=== PATIENT | male | born 1950 | race Caucasian/White ===

== ENCOUNTER 2018-10-10 07:04 | Day surgery (SDC) | payer OTHER, MEDICARE ==
[~2018-10-10] VITALS: Ht 180.3 cm; Wt 66.8 kg
[~2018-10-10 07:04] MED LIST: AMOCLA875 PO; LO-DOSE ASPIRIN81 MG
== END 2018-10-10 09:29 | disposition home or self-care (01) ==
LOC: ORSCSDS 07:04
PROVIDERS: Surgery
PROC: 0DJD8ZZ Inspection of Lower Intestinal Tract, Via Natural or Artificial Opening Endoscopic (ICD-10-PCS; principal; 2018-10-10 08:30)
DX: Z12.11 Encounter for screening for malignant neoplasm of colon (principal); Z79.82 Long term (current) use of aspirin
CPT/HCPCS: J2704; J7120

== ENCOUNTER 2021-06-26 09:54 | Day surgery (SDC) | payer OTHER ==
[~2021-06-26] VITALS: Ht 180.3 cm; Wt 65.0 kg
[~2021-06-26 09:54] MED LIST changes: +ATOR10; +Acerola C500 MG; +Aspir 8181 MG; +MULVITA; +REVATIO20 MG
== END 2021-06-26 11:38 | disposition home or self-care (01) ==
LOC: ORSCSDS 09:54
PROVIDERS: Student in an Organized Health Care Education/Training Program
PROC: 0DB58ZX Excision of Esophagus, Via Natural or Artificial Opening Endoscopic, Diagnostic (ICD-10-PCS; principal; 2021-06-26 11:15)
PROC: 0D758ZZ Dilation of Esophagus, Via Natural or Artificial Opening Endoscopic (ICD-10-PCS; principal; 2021-06-26 11:15)
PROC: 0DB48ZX Excision of Esophagogastric Junction, Via Natural or Artificial Opening Endoscopic, Diagnostic (ICD-10-PCS; principal; 2021-06-26 11:15)
DX: R13.10 Dysphagia, unspecified (principal); K44.9 Diaphragmatic hernia without obstruction or gangrene; Z79.899 Other long term (current) drug therapy
CPT/HCPCS: 88305; J2704; J7120